=== PATIENT | male | born 1940 | race Caucasian/White ===

== ENCOUNTER 2020-04-04 12:49 | Emergency (ER) | payer MEDICARE, OTHER ==
[~2020-04-04 12:49] MED LIST: ADULT LOW DOSE81 MG PO; CRESTOR10 MG PO; HUMIBID LA TAB600 MG PO; HYDROCODON-ACE1 EAC6 PO; LOSARTAN-HCTZ1 EACH PO; NORVASC 5 MG TAB5 MG PO; OMEGA 3 FISH O1 EACH PO; OMNICEF 300 MG300 MG PO; PROTONIX40 MG PO; TYLENOL 325MG325 MG PO
[2020-04-04 14:31] LABS: HEMOGLOBIN 12.9 gm/dl (14.0-17.5); RED BLOOD COUNT 4.51 M/UL (4.20-5.50); WHITE BLOOD COUNT 25.6 K/UL (4.5-11.0)
[2020-04-04] MEDS ORDERED: AZITHROMYCIN250 MG PO (17:47)
[2020-04-04] MEDS ORDERED: DECADRON6 MG PO (17:47)
== END 2020-04-04 18:40 | disposition home or self-care (01) ==
LOC: ER1 12:49
DX: U07.1 COVID-19 (principal); N28.9 Disorder of kidney and ureter, unspecified; D72.829 Elevated white blood cell count, unspecified; Z95.5 Presence of coronary angioplasty implant and graft
CPT/HCPCS: 36600; 71045; 80053; 82550; 82553; 82803; 83605; 83874; 83880; 84484; 85025; 85610; 87040; 99285; U0002

== ENCOUNTER → 2020-05-26 | Outpatient (CLI) | payer MEDICARE, OTHER ==
[~2020-05-26] MED LIST changes: +AZITHROMYCIN250 MG PO; +DECADRON6 MG PO
[2020-05-26 08:44] LABS: BUN/CREATININE RATIO 15 (0-10)
== END ==
LOC: LAB 07:56
PROVIDERS: Emergency Medicine
DX: I25.10 Atherosclerotic heart disease of native coronary artery without angina pectoris (principal); I10 Essential (primary) hypertension; E78.2 Mixed hyperlipidemia; E11.9 Type 2 diabetes mellitus without complications
CPT/HCPCS: 36415; 80053; 83036; 84550

== ENCOUNTER → 2020-10-31 | Outpatient (CLI) | payer MEDICARE, OTHER ==
[2020-10-31 08:47] LABS: BUN/CREATININE RATIO 20 (0-10)
[2020-11-02 13:14] LABS: CHOLESTEROL, TOTAL 117 mg/dL (100-199); HDL SIZE 8.8 nm (>=9.2); HDL-C 47 mg/dL (>39); HDL-P (TOTAL) 31.6 umol/L (>=30.5); LARGE HDL-P 3.9 umol/L (>=4.8); LARGE VLDL-P 1.3 nmol/L (<=2.7); LDL SIZE 20.2 nm (>20.5); LDL SIZE 20.2 nm (>=20.8); LDL-C 57 mg/dL (0-99); LDL-P 741 nmol/L (<1000); LP-IR SCORE 50 (<=45); SMALL LDL-P 418 nmol/L (<=527); TRIGLYCERIDES 57 mg/dL (0-149); VLDL SIZE 48.3 nm (<=46.6)
== END ==
LOC: LAB 07:59
PROVIDERS: Emergency Medicine
DX: I12.9 Hypertensive chronic kidney disease with stage 1 through stage 4 chronic kidney disease, or unspecified chronic kidney disease (principal); N18.2 Chronic kidney disease, stage 2 (mild); E78.2 Mixed hyperlipidemia; R73.09 Other abnormal glucose
CPT/HCPCS: 36415; 80053; 80061; 83704

== ENCOUNTER → 2021-04-27 | Outpatient (CLI) | payer MEDICARE, OTHER ==
[2021-04-27 08:29] LABS: BUN/CREATININE RATIO 16 (0-10)
== END ==
LOC: LAB 07:42
PROVIDERS: Emergency Medicine
DX: Z00.01 Encounter for general adult medical examination with abnormal findings (principal); I12.9 Hypertensive chronic kidney disease with stage 1 through stage 4 chronic kidney disease, or unspecified chronic kidney disease; E11.22 Type 2 diabetes mellitus with diabetic chronic kidney disease; N18.2 Chronic kidney disease, stage 2 (mild); E78.2 Mixed hyperlipidemia; I25.10 Atherosclerotic heart disease of native coronary artery without angina pectoris
CPT/HCPCS: 36415; 80053; 83036; 84550

== ENCOUNTER → 2021-06-01 | Outpatient (CLI) | payer MEDICARE, OTHER | LOC: EXRD 12:45 | DX: I65.23 Occlusion and stenosis of bilateral carotid arteries (principal); R01.1 Cardiac murmur, unspecified | CPT/HCPCS: 93880 ==

== ENCOUNTER → 2021-06-26 | Outpatient (CLI) | payer MEDICARE, OTHER ==
[2021-06-26 14:43] LABS: BUN/CREATININE RATIO 20 (0-10)
== END ==
LOC: CT 13:24
PROVIDERS: Emergency Medicine
DX: I25.10 Atherosclerotic heart disease of native coronary artery without angina pectoris (principal); I65.21 Occlusion and stenosis of right carotid artery; R01.1 Cardiac murmur, unspecified
CPT/HCPCS: 36415; 70498; 80048; Q9967

== ENCOUNTER → 2021-07-20 | Outpatient (CLI) | payer MEDICARE, OTHER ==
[2021-07-21 08:17] LABS: RPR Non Reactive (Non Reactive)
[2021-07-21 13:11] LABS: LYME TOTAL ANTIBODY EIA Negative (Negative)
[2021-07-21 16:12] LABS: TREPONEMA PALLIDUM ANTIBODIES Non Reactive (Non Reactive)
== END ==
LOC: LAB 07:40
PROVIDERS: Psychiatry & Neurology Neurology
DX: G56.03 Carpal tunnel syndrome, bilateral upper limbs (principal); R20.0 Anesthesia of skin; R20.2 Paresthesia of skin
CPT/HCPCS: 36415; 82175; 82570; 82607; 82746; 83655; 83825; 83921; 86255; 86592; 86618; 86780